=== PATIENT | male | born 1945 | race Caucasian/White ===

== ENCOUNTER 2016-05-31 15:49 | Emergency (ER) | payer MEDICARE ==
[2016-05-31] MEDS ORDERED: [UNRECOGNIZED DRUG - OTHER] IJ (16:38)
[2016-05-31] MEDS ORDERED: FLOMAX 0.40.4 MG/CAP PO (16:38)
[2016-05-31] MEDS ORDERED: RELION VEN0.09 MG/Ac IH (16:38)
[2016-05-31] MEDS ORDERED: ENALAPRIL20 MG PO (16:39)
[2016-05-31] MEDS ORDERED: CREON 60000 U-11 ECC PO (16:39)
[2016-05-31] MEDS ORDERED: LASIX 40MG TABL40 MG PO (16:42)
[2016-05-31 22:40] VITALS: BP 162/70
== END 2016-05-31 22:40 | disposition short-term general hospital (02) ==
LOC: ED 15:49
DX: R53.1 Weakness (principal); R53.81 Other malaise; I50.9 Heart failure, unspecified; R60.9 Edema, unspecified; N18.3 Chronic kidney disease, stage 3 (moderate); S52.591D Other fractures of lower end of right radius, subsequent encounter for closed fracture with routine healing; J44.9 Chronic obstructive pulmonary disease, unspecified; K74.69 Other cirrhosis of liver; E11.22 Type 2 diabetes mellitus with diabetic chronic kidney disease; Z72.0 Tobacco use
CPT/HCPCS: A4344; A4354; J1815; J1940; J7030

== ENCOUNTER 2016-06-10 09:57 | Inpatient (IN) | payer MEDICARE ==
[~2016-06-10 09:57] MED LIST: CREON 60000 U-11 ECC PO; ENALAPRIL20 MG PO; FLOMAX 0.40.4 MG/CAP PO; LASIX 40MG TABL40 MG PO; RELION VEN0.09 MG/Ac IH; [UNRECOGNIZED DRUG - OTHER] IJ
--- NOTE | 2016-06-10 11:39 | NUR ---
Pt admitted to floor via WC. Pt brother at bedside. Placed POM from [facility] in pharmacy. Pt placed on 2L O2 via NC however pt takes it off intermittently "because it gets in the way." Pt sats noted to drop into upper 80's, notified pt of this and he shrugged his shoulders saying "whatever." Pt states several times that he wants to go outside to smoke. Pt is informed that this is a non-smoking facility and a nicotine patch is placed on L shoulder. Abdomen noted to be rounded and firm, pt denies pain with palpation. Scrotum also noted to be red and edematous. Pt refuses to have hat in toilet informing NEWS LIBRARIAN that he can't point penis down in toilet with hat because his scrotum hits. The hat is taken out. Inform pt that he is also on a 2000ml fluid restriction of which he states he is aware. Pt coccyx covered with mepilex, per report from KEYA Gonzalez at [facility], there is a healing ulcer that has granulation, is pink and blanchable. BLE noted to have 3-4+ pitting edema, pt denies pain with palpation but states that walking is difficult as it "feels like I'm walking on clubs." Pt reports having chronic diarrhea and has had several loose stools since arriving. Pt does ambulate with 1 assist using own cane.
[2016-06-10 13:21] VITALS: BP 128/59
--- NOTE | 2016-06-10 17:00 | NUR ---
Pt encouraged and assisted up to chair for dinner. Explain the need to change positions more often to help with healing of pressure ulcer. Pt not very receptive to this.
[2016-06-10 18:48] VITALS: BP 135/61
--- NOTE | 2016-06-10 21:00 | NUR ---
INSECTICIDE MIXER reported to this nurse that pt has a pocket knife, an unknown amount of kaplan, cigarettes, and home medications in room. This nurse asked pt if we could keep these items locked in the med room where they would be safe. Pt states he will give his brother his medications, money, and cigarettes tomorrow, but wishes for them to remain in the room with him. His pocketknife was placed in the medication room.
--- NOTE | 2016-06-11 01:30 | NUR ---
Report received from Keri LAURA. Bed alarm sounds, VENKATA and this nurse down to room. Patient noted to bed sitting self up on EOB, in BR. NETWORK MANAGEMENT SPECIALIST asked patient what he was doing. Patient replied he was getting up to go to the BR. Staff reminded patient that he was to ring for assistence. Patient replied. "why". This nurse advised for safety as he was not able to stand on his own and we didn't want him to fall. NETWORK MANAGEMENT SPECIALIST had told nurse that del brown patient would not stand at all with one assist and that she had to summon help of other nurse to help with patient. Patient sits on EOB to void. Voids small amount in urinal. Assisted back to bed. Positoned for comfort on L side. Bed alarm on. Call light in reach.
--- NOTE | 2016-06-11 01:42 | NUR ---
Report received from Keri LAURA. Patient calls for assist to BR. LAURA in room to assist. Stated patient had a small incontinent diarrhea stool and a small formed stool in toilet. Voided 350 ML of clear yellow urine. Assisted back to bed with bed alarm on. Request and given Imodium, Oxycodone for L rib and wrist pain 11/28 and Duoneb nebulizer tx. Request and given coffee with spelenda. Remains on 2000 ML FR.
--- NOTE | 2016-06-11 04:43 | NUR ---
Has been awake most of the night, watching tv now. States pain in L ribs hasn't changed much "still a 7. Advised patient can have analgesic in 1 hour if needed. Appears relaxed watching TV. Was up few minutes ago to BR and did not requests analgesic to [facility]ER. Denies needs at this time.
[2016-06-11 06:06] VITALS: BP 202/86
--- NOTE | 2016-06-11 06:53 | NUR ---
B/P this AM . Denies H/A, blurred vision or other sx. Recheck manual 190/88. Would like throat lozenge and ocean nasal spray for dry throat and nose. Note left for Dr. Perez.
--- NOTE | 2016-06-11 07:31 | NUR ---
Report to Jasmina LAURA.
--- NOTE | 2016-06-11 08:15 | NUR ---
PT CALM AND PLEASANT AT THIS TIME, SITTING UP EATING BREAKFAST, COMPLEX ASSESSMENT COMPLETED, BLE VERY DRY AND FLAKY, DENIES PAIN, HAS JACKET WITHIN REACH AT ALL TIMES AND INSISTS TO HAVE IT WITH HIM AT ALL TIMES, BG 206 THIS AM, ACCEPTS HIS NOVOLOG SSI BUT REFUSES LEVEMIR, STATES HE STRUGGLES WITH LOW BG LEVELS AND WILL NOT TAKE ANY INSULIN EXCEPT HIS "MEAL" INSULIN, NOTIFIED, ABLE TO WALK WITH SBA TO THE BATHROOM, 3+ PITTING EDEMA TO BLE AND UPON TOILETING SCROTUM APPEARS TO BE EXTREMELY SWOLLEN WELL, PATIENT BACK IN CHAIR EATING, CALL LIGHT WITHIN REACH, DENIES FURTHER NEEDS, NO IMMEDIATE CONCERNS AT THIS TIME
--- NOTE | 2016-06-11 12:10 | NUR ---
PT CALM AND COOPERATIVE WITH STAFF, UP EATING LUNCH, ACCEPTS ADMINISTRATION OF NOVOLOG SSI AND TAKES PO PANCREAZE, STATES HE WILL TAKE BREATHING TREATMENT AFTER LUNCH, DENIES FURTHER NEEDS, CALL LIGHT WITHIN REACH
--- NOTE | 2016-06-11 17:07 | NUR ---
PT REFUSING SUPPER UNTIL HE RECIEVES HIS BREATHING TX, BREATHING TX RUNNING AT THIS TIME, STATES HE MAY TRY TO EAT AFTER BUT HIS ABDOMEN HAS BEEN HURTING AND HE DOESN'T FEEL GOOD, REPORTS PAIN MEDICATION IS BEGINNING TO TAKE EFFECT AND HE WILL LET STAFF KNOW IF THE PAIN GETS WORSE, WILL CONTINUE TO MONITOR
--- NOTE | 2016-06-11 17:20 | NUR ---
PT REFUSING SUPPER STILL, TOOK A FEW SMALL BITES, WANTS TO GET IN BED AND LEAVE MEAL AT BEDSIDE IN CASE HE GETS HUNGRY, PATIENT VERY ADIMENT THAT HIS JACKET FROM HOME STAY IN HIS BED, WHEN THIS NURSE TRIED TO MOVE IT OVER SO HE HAD ROOM TO GET IN THE BED SAFELY HE DEMANDED FOR ME TO PUT IT BACK DOWN AND TO "LEAVE THAT JACKET RIGHT THERE", "DON'T MOVE THAT JACKET", JACKET REMAINS WITH PATIENT IN BED AT THIS TIME, SUPPER ON BEDSIDE TABLE, SOB PRESENT WITH EXERTION, WILL CONTINUE TO MONITOR HEALTH STATUS THROUGHOUT REST OF SHIFT
[2016-06-11 18:24] VITALS: BP 159/74
--- NOTE | 2016-06-11 18:43 | NUR ---
PT IN BED RESTING COMFORTABLY, NO VISITORS THIS ENTIRE SHIFT, HOME MEDS AND POCKET KNIFE STILL AT FACILITY PRENDING BROTHERS VISIT SO HE CAN TAKE THEM HOME, PATIENT REFUSES TO LET STAFF HANDLE HIS HOME MEDICATIONS STILL
--- NOTE | 2016-06-12 04:06 | NUR ---
pt sleeping. No needs at this time. call light in reach. bed alarm on.
[2016-06-12 06:03] VITALS: BP 176/76
--- NOTE | 2016-06-12 08:00 | NUR ---
PT AGREES TO TAKE LEVEMIR TODAY, HE REFUSED YESTERDAY, EDUCATED ON STILL HAVING ELEVATED BG LEVELS AND PATIENT AGREES TO TRY IT BUT STATES "I SURE HOPE I DON'T BOTTOM OUT TODAY", CURRENT BG LEVEL IS 263, ATTITUDE THIS MORNING IS SOMEWHAT WITHDRAWN, IRRITATED EASILY, BUT COOPERATIVE, EATING BREAKFAST, REPORTS THE "SAME PAIN" HE'S BEEN HAVING, PAIN IS MANAGEABLE AT THIS TIME, PT IS ALERT AND ORIENTED, DENIES NAUSEA, WALKS WITH SBA TO THE BATHROOM USING HIS CANE, BACK IN CHAIR EATING UPON COMPLETING ASSESSMENT, CALL LIGHT WITHIN REACH, ABLE TO VOICE NEEDS, NO FURTHER NEEDS OR CONCERNS AT THIS TIME
--- NOTE | 2016-06-12 14:41 | NUR ---
DPOA PAPERWORK ON CHART, CODE STATUS, AND HOME MEDICATIONS/POCKET KNIFE NEEDING TO BE SENT HOME AND DISCUSSED WITH FAMILY STILL NOT COMPLETED DUE TO PATIENT HAVING NO VISITORS OVER THE WEEKEND SO FAR UP TO THIS POINT, PATIENT STATES ALL OF THE ABOVE NEED TO BE DISCUSSED WITH HIS BROTHER STILL AND NO DECISIONS HAVE BEEN MADE, PATIENT STILL A FULL CODE AT THIS TIME
[2016-06-12 19:15] VITALS: BP 165/72
--- NOTE | 2016-06-13 01:40 | NUR ---
pt sitting up in chair. no needs at this time. call light in reach
[2016-06-13 06:08] VITALS: BP 176/90
--- NOTE | 2016-06-13 08:01 | NUR ---
in an attempt toget this patient out of bed and to the chair for breakfast he states he does get up but he wont this am, he will sit on the side of the bed, we also then discussed gettnig off his coccys or he may get a large ulcer in that area, he then asks, "do you want me tostand on my head?", I tried to explain to him youmust relieve the pressure for the are to heal and he should rest on his side, he then states, "Jamir", he currentlyis positioned supine. hob elevated approx 45', this nurse then stated I will not argue with you, you know the facts and it is up to you to follow the recommendatons or not
--- NOTE | 2016-06-13 08:40 | NUR ---
Upon entering room, pt noted to be lying in bed with eyes closed. Coloring is patel but pt sleeping soundly. Pt arouses to touch and instructed to sit on edge of bed for meds and breakfast. Pt is unhappy about this but agrees. Assist to BR using cane, assess coccyx. Noted 0.5cm x 1cm stage II ulcer to coccyx, slight serosanguinous drainage noted, with approx 9cm diameter purple area surrounding wound. Wound is covered with mepilex coccyx dressing. Pt noted to have moderate scrotal swelling. Pt refuses shower this morning for tech stating that he doesn't feel like taking one. Pt also refuses to change out of soiled clothing that he has been wearing since admission. Pt returns to side of bed. Inform pt of morning meds he is getting. Instruct that per orders he will get 6u Novolog and 8u Levemir. Pt states "I just want six of each. I don't want to get too low." Inform pt that BS was 251 this AM prior to eating, Levemir is long acting over 24 hours and he will be eating meals throughout the day and continue to be monitored. Pt agrees to this and insulins given. Breakfast tray set up. Pt requests several more splenda's than the four that he has. Inform ST Delia that pt is now available. She enters pt room to perform eval to which he states that he does not want to receive her services stating "I just want to eat in peace, I don't want anyone watching me eat." Explain to pt that she was not just there to watch him eat, she would be assessing him r/t his disease process to which he still refuses. Pt then requests to receive his breathing tx prior to eating breakfast.
--- NOTE | 2016-06-13 14:49 | NUR ---
Spoke w/ pt as requested per [place] RN who had also spoken to pt about his reported refusal of care. Pt is also reported to have refused Hospice and Palliative care in the past. Pt states to this nurse as explanation of SWB benefits begins, that she is the 5th person to come in and threaten him. Pt is told that no one is threatening him, and that we just want to be sure that he understands what a SWB loc is. SWB loc is explained slowly and pt is given opportunity to ask questions but verbalizes he understands. After explanation pt states, "I came here for you nurses to give me my meds and to feed me, and I want you to let me rest". It is explained to pt that SWB is to help him work towards getting better, that we are here to help him, but for us to do that he must help us. He confirms that he does want to get strong enough to go home and he thinks he can. He knows that he is living w/ a life threatening illness. He is told that SWB is a loc where we can try to help him regain his strength to go home and he could go home w/ HH services that can help him in the home once he is strong enough, but to be eligible for SWB loc he needs to work w/ nursing and therapies to show that he is increasingly getting a little better, and it is important for him to be able to demonstrate that there is some improvement every day, with the exception of days he may understandably get sick or have a set back. When he again states I didn't come here to work, I am here to rest, it is explained to him that is his choice and if he just wants to not be bothered and to just rest, there is another loc that this nurse can help him get set up in where he can do this and others will provide him with this kind of care, such as at a rest home. He just needs to let us know what he wants. He confirms again that he wants to get stronger to go home. It is again explained if he wants to try to go home, we are glad to try and help him reach this goal if he will help us help him. Pt then states that he does not want LTC, but would like to go home. Pt is asked if he would be willing to work in small steps, for example instead of taking a shower, how about just washing his hands and face and sitting on the side of the bed and shaving. He is agreeable to doing this and OT comes to the door to work w/ him at this time. He is advised to visit w/ OT and eat his lunch and then we would see about getting him set up to shave. OT reports afterwards that he is working well w/ her, and she explains that pt knows that he is dying and he just wants to have some control of the situation he is in, which is why he can be resistant to care. OT suggests that nursing approach him with this in mind and present care by offering choices and letting him have some control and decision making power thus give some control back to him. PT makes the same suggestions that nursing allow him to have some control in his decisions of self cares. Pt is offered visiting w/ a aviation project manager or a electrical tryout person of his choice and he emphatically states he does not want one, and that he has no worship. Nursing is notified that therapists are having good results w/ pt working w/ them by using this method of allowing him to assist in making choices. Also 2 copies of "A Time to Live - Living with a Terminal Illness" are left at nursing station for further information/review from a hospice viewpoint of caring for a terminally ill patient, who understands he is dying, but wants to be able to live to the best of his ability at this time.
[2016-06-13 19:02] VITALS: BP 198/85
--- NOTE | 2016-06-13 19:20 | NUR ---
Report given from Amber Castañeda RN
--- NOTE | 2016-06-13 19:30 | NUR ---
Sitting up in bed, a/o x 3. Watching TV. Denies having any pain. Denies having any concerns at this time. Pt given Vanilla pudding and ice chips to water per pt request.
--- NOTE | 2016-06-13 19:30 | NUR ---
See shift accessment
--- NOTE | 2016-06-13 21:00 | NUR ---
Accu-chek done, blood sugar 209
--- NOTE | 2016-06-13 22:30 | NUR ---
Pt ambulated to bathroom with one stand by assist. Gait steady. Continues to have foam dressing on coccyx.
[2016-06-13 22:40] VITALS: BP 158/81
--- NOTE | 2016-06-14 01:37 | NUR ---
Pt given ipratropium/albuterol nebulizer breathing treatment. Per pt request. C/o's of SOB. Sa02 90% on 2L/NC, Resp 24 and labored. Pulse 70
--- NOTE | 2016-06-14 01:55 | NUR ---
0150 c/o's of pain in right wrist and left side of rib cage. Rates pain 7 out of 10. Pt given oxycodone 5mg PO. Sa02 90%, resp 20, Pulse 69 after breathing tx. 0155 Pt ambulated to bathroom with one person minimal assist. Used cane, gait steady. O2 on at 2L/NC
--- NOTE | 2016-06-14 02:38 | NUR ---
0215 Pt requested a diet root beer. Informed pt the facility did not have diet root beer to offer. Offered pt a diet lemon [place] pt agreed. Written on pt's fluid intake sheet. 0235 Pt sitting up in recliner. Request orange juice, stated he would save diet soda for later. Pt reminded orange juice could raise his blood sugar. Pt stated "I know that." "but I need to have little snacks to keep me going." "They have just been giving me more insulin when my blood sugar goes up." Pt given 118mls of oranges with ice chips.
--- NOTE | 2016-06-14 03:03 | NUR ---
Continues to sitting up in recliner, a/o x 3. States he is feeling a little better. Pain decreased from a 7 out 10 to a 5 out of 10.
--- NOTE | 2016-06-14 05:30 | NUR ---
Briana CAD DETAILER report pt's BP at 0525 in right arm was 220/90 with monitor. At 0535 BP was 218/98 with monitor.
[2016-06-14 05:40] VITALS: BP 200/90
[2016-06-14 06:05] VITALS: BP 180/78
--- NOTE | 2016-06-14 06:10 | NUR ---
At 0540 BP checked with manual blood pressure cuff. Blood pressure 200/90. Pt denies headache, dizziness, nausea or lightheadedness. Rates pain right wrist and left side of rib cage 3 out of 10. At 0546 Pt given oxycodone 5mg PO. At 0605 Blood Pressure re-check via manual cuff. BP 180/78. Pt's a/o x 3, answers all questions appropriately. Pupils equal and reactive to light. Equal strength in upper and lower extremities.
[2016-06-14 06:32] VITALS: BP 215/98
--- NOTE | 2016-06-14 07:35 | NUR ---
Report given to Amber Castañeda RN
--- NOTE | 2016-06-14 07:50 | NUR ---
Lara SARGENT notified of pt's blood pressures at 0525 of 220/90 and 0535 of blood pressure 218/98. Nofitied of 0632 Bld pressure of 215 systolic. No new orders.
--- NOTE | 2016-06-14 08:37 | NUR ---
Pt up in chair for breakfast. Denies pain. 02@2L via NC. Ascities remains with abdomen firm and genitalia edematous. BLE skin flaking/dry, 3+ pitting edema. Pt denies pain with palpation.
[2016-06-14 18:49] VITALS: BP 199/89
--- NOTE | 2016-06-14 19:06 | NUR ---
Report received from Amber Castañeda RN
--- NOTE | 2016-06-14 20:15 | NUR ---
Resting in bed eyes closed. Opens eyes when spoken too. Ambulated to bathroom with one stand by assist and used cane.
--- NOTE | 2016-06-14 20:18 | NUR ---
See shift accessment
--- NOTE | 2016-06-14 20:45 | NUR ---
2040 C/o's of pain right wrist and left sided rib cage. Rated 5 out 10. Given oxycodone 5mg PO
--- NOTE | 2016-06-15 | NUR ---
Pt resting in bed, with head of bed elevated. Oxygen on at 2L/NC. Q hourly checks done.
--- NOTE | 2016-06-15 00:48 | NUR ---
0035 Pt ambulated to bathroom, with one stand by assist, used cane. Given breathing treatment per pt request. Lung sounds diminished in upper and lower lobes. 0057 C/o's of pain in right wrist and left side of rib cage. Rates 6 out of 10. Given Oxycodone 5mg PO.
--- NOTE | 2016-06-15 00:57 | NUR ---
Sa02 89% on 2L/NC. Oxygen increased to 3L/NC per pt request
--- NOTE | 2016-06-15 01:30 | NUR ---
Report received from Wali LAURA. Patient rests in bed with eyes closed. Bed alarm on. Oxygen in place per N/C. No signs of pain or distress.
--- NOTE | 2016-06-15 02:42 | NUR ---
Up to BR with 1 assist and cane, voids 300 ML of clear yellow urine. Assisted back to chair per request. SAO2 was checked at 0200 and was 92% on 3L of oxygen. O2 decreased to 2L at that time.
--- NOTE | 2016-06-15 05:18 | NUR ---
Medicated with Oxycodone 5 Mg for pain to right wrist and bottom 6/10. Blood pressure 219/98. Denies H/A, blurred or double vision. "it just does that sometimes". Per report of previous nurse patient has been having episodes of hypertension and provider aware. Will report to oncoming shift.
[2016-06-15 05:52] VITALS: BP 216/95
--- NOTE | 2016-06-15 06:27 | NUR ---
Resting with eyes closed, no signs of pain or distress. Bed alarm on. Call light in reach.
--- NOTE | 2016-06-15 07:08 | NUR ---
Report to August RN
[2016-06-15 18:46] VITALS: BP 165/77
--- NOTE | 2016-06-15 21:04 | NUR ---
Report received from Shonna RN. Patient awaken for assessement and medications. Assisted to BR. Voided and had BM. Assisted to bed. Assessment completed. Oxygen in place at 2 L/NC. Oxycodone given per request with scheduled HS medication. Bed alarm on. Call light in reach.
--- NOTE | 2016-06-16 04:27 | NUR ---
Rests with eyes closed. Oxygen in place at 2L/NC. Bed alarm shank boner light in reach.
--- NOTE | 2016-06-16 05:20 | NUR ---
Up to BR with assist. Voids 400 ML of clear yellow urine. Requests Nebulizer tx and pain pill for buttock pain 10/29.
[2016-06-16 06:04] VITALS: BP 211/94
--- NOTE | 2016-06-16 07:00 | NUR ---
Report to Padmaja LAURA
--- NOTE | 2016-06-16 08:30 | NUR ---
Pt sitting in up in chair. Has completed eating breakfast. Re educated on fluid restriction guidelines and importance as pt is asking for more ice water. BLE with 3+ pitting edema. SKin connie and flakey. Encouraged to elevate. Coban intact to right wrist. Denies pain at this time. Call light in reach.
--- NOTE | 2016-06-16 13:37 | NUR ---
Pt allows this RN to use elephant ear wash equiptment and clean out bilat ears. Several large pieces of wax removed from right ear. Pt tolerates well.
[2016-06-16 18:15] VITALS: BP 174/77
--- NOTE | 2016-06-16 19:00 | NUR ---
Report received from Padmaja Gomes RN
--- NOTE | 2016-06-16 19:48 | NUR ---
193 Resting in bed, with head of bed elevated, eyes closed. Opens eyes when spoken too. Oxygen on at 2L/NC. See shift accessment. Pt c/o's of pain right wrist, left sided rib cage pain. Stated "my butt is sore." Rates pain 6 out of 10. 1940 Ambulated to bathroom with one stand by assist. Aquacel Foam dressing changed on coccyx. Drainage noted on old dressing approx 2cm size. Color brown. Approx 2cm x 2cm area noted center of sacrum area. Skin pink, no active drainage noted. New Aquacel foam dressing applied to coccyx.
--- NOTE | 2016-06-16 21:35 | NUR ---
2109 Pt given oxycodone 5mg PO for pain. Given scheduled breathing tx. Lung sounds diminished in upper and lower lobes. Has occasional dry none productive cough. 2131 given insulin 6 units SQ for blood sugar of 290.
--- NOTE | 2016-06-16 23:00 | NUR ---
Resting in bed, head of bed elevated. Eyes closed. Oxygen on at 2L/NC.
--- NOTE | 2016-06-16 23:50 | NUR ---
Pt Awake, requesting to have wrap on right wrist removed. Pt c/o's of it bothering him. Marilyn Briscoe APRN notified.
--- NOTE | 2016-06-17 | NUR ---
Marilyn Briscoe APRN into see pt, Marilyn removed wrap from right wrist.
--- NOTE | 2016-06-17 01:50 | NUR ---
At 0140 Pt ambulated to bathroom with one stand by assist, used cane. Oxygen on at 2L/NC. C/o's of SOB after ambulating back to bed. Given PRN breathing treatment. Sa02 90%-91% on 2L/NC. Pt has dry none productive cough. Given oxycodone 5mg PO. Rates pain 6 out of 10
--- NOTE | 2016-06-17 03:00 | NUR ---
Resting in recliner, eyes closed on and off. Oxygen on at 2L/NC. When asked if pain was better, pt stated "yes." Rated pain approx 4 out 10.
--- NOTE | 2016-06-17 05:10 | NUR ---
Ambulated to bathroom. Then requested all lights off except bathroom light. Stated he was going to sleep now. Door closed per pt request. Continues to have oxygen on at 2L/NC and none productive cough.
[2016-06-17 06:18] VITALS: BP 207/96
--- NOTE | 2016-06-17 07:45 | NUR ---
REPORT RECEIVED FROM KEYA MENDOZA
--- NOTE | 2016-06-17 08:00 | NUR ---
PATIENT UP TO RECLINER FOR BREAKFAST. SHIFT ASSESSMENT COMPLETE. REPORTS HAVING AN OKAY NIGHT OVERALL. STATES "IT WAS SLEEPLESS THEY ALL ARE" REPORTS PAIN IS 6/10 IN CHEST WHERE FRACTURED RIB IS AT AND ON BOTTOM. REQUESTED PAIN PILL WITH REST OF SCHEDULED MEDICATIONS THIS MORNING. FINE CRACKLES AUSCULTATED TO BILAT LOWER LOBES. UPPER LOBES DIMINISHED. ON OXYGEN VIA NASAL CANNULA AT 2L. PATIENT'S CALL LIGHT WITHIN REACH. CHAIR ALARM ON.
[2016-06-17 10:05] VITALS: BP 165/67
--- NOTE | 2016-06-17 16:37 | NUR ---
Pt anticipates returning to his home environment and is in agreement w/ having HH services. He will be reassessed on regarding discharge plan.
[2016-06-17 18:30] VITALS: BP 161/73
--- NOTE | 2016-06-17 19:05 | NUR ---
REPORT GIVEN TO KEYA MENDOZA
--- NOTE | 2016-06-17 19:06 | NUR ---
Report received from Yesenia Martinez RN
--- NOTE | 2016-06-17 19:50 | NUR ---
Pt sitting in bed with head of bed elevated. Pt eyes closed on and off. Opens eyes when spoken too. Oxygen on at 2 L/NC. C/o's of pain left side of rib cage and coccyx. States he does not have much discomfort in right wrist. See pt shift accessment.
--- NOTE | 2016-06-17 19:52 | NUR ---
Pt has 2-3 plus edema in bilateral ankles and feet. Pulses are weak and difficulty to find due to the edema.
--- NOTE | 2016-06-17 20:50 | NUR ---
Pt given oxycodone 5mg PO, for pain located left side of rib cage and coccyx. Rated pain 6 out of 10. Pain goal is zero. Pt tolerated breathing treatment without difficulty. Sa02 92% on 2L/NC. Pulse 67, respirations 24 slightly labored. Pt becomes SOB of breath with walking.
--- NOTE | 2016-06-17 22:10 | NUR ---
Resting in bed with head of bed elevated. Oxygen on at 2L/NC. Eyes closed even respirations.
--- NOTE | 2016-06-18 00:30 | NUR ---
Resting in recliner, eyes closed, respirations even. No facial grimacing noted. Oxygen at 2L/NC.
--- NOTE | 2016-06-18 01:34 | NUR ---
Pt awake and a/o x 3. Pt ambulated to bathroom with one stand by assist and used cane. C/o of SOB after ambulating. Sa02 93% on 2L/NC, pulse 63, respirations 24. Pt c/o's of pain in left side of rib cage and coccyx. Pt given oxycodone 5mg PO.
--- NOTE | 2016-06-18 01:44 | NUR ---
Pt given breathing treatment, c/o of SOB. Sa02 93%, pulse 63, respirations 24. Lung sounds diminished in upper and lower lobes bilaterally. Expiratory wheezes noted in left upper and lower lobes.
--- NOTE | 2016-06-18 02:30 | NUR ---
Resting in recliner, eyes closed, respirations even. No facial grimacing noted.
--- NOTE | 2016-06-18 03:45 | NUR ---
Awake and a/o x 3. Ambulated to bathroom with one person stand by assist. Pt used cane, gait steady. Oxygen on at 2L/NC. No c/o's of SOB or pain.
[2016-06-18 06:05] VITALS: BP 192/89
--- NOTE | 2016-06-18 06:37 | NUR ---
At 0547 pt given breathing treatment per pt request. Sa02 89-90% 2L/NC, pulse 67, respirations 24 prior to breathing tx. 0600 Respirations 24, pulse 63, Sa02 93%. after breathing tx. Lung sounds diminished in upper and lower lobes. 0614 blood sugar 309. 0627 scheduled levermir of 12units given SQ right lower abd. 0635 Resting in bed, room lights off per pt request.
--- NOTE | 2016-06-18 08:10 | NUR ---
Patient calm and cooperative, pleasant with staff this AM, denies any new pains, pain is under control at this time, pt is up in chair eating breakfast, takes PO pills with no difficulties, BG levels still elevated, Levemir and Novolog given this AM, will continue to monitor BG levels, no acute changes this AM, walking to and from bathroom independently with SBA and cane, Mepilex to pressure sore on coccyx changed at this time, sore still open but appears to be healing, no further concerns noted at this time
--- NOTE | 2016-06-18 15:52 | NUR ---
Pt relaxing in room throughout most of shift, refusing to take a shower today, family by to see patient for short time this afternoon, patients pain is under control, gets agitated about his fluid restriction and keeps asking for more salt on food, educated on importance of fluid restriction and monitoring salt intake, easily redirected at this time
--- NOTE | 2016-06-18 16:02 | NUR ---
Pt calls nurse into room at this time and says he thinks his BG is low, he is "seeing spots" and that is what happens when his BG drops, this nurse obtained a BG reading and it read 47, attempted a second time and obtained a reading of 51, monica crackers and peanut butter provided for patient at this time, will recheck BG level in 15 minutes, denies further symptoms other than seeing spots, he is alert and oriented x4, awake, and able to converse with staff
--- NOTE | 2016-06-18 16:22 | NUR ---
New BG obtained, only up to 50 at this time, 8 ounces of OJ, monica crackers, and peanut butter given to patient, patient drinking OJ and eating the crackers and PB at this time, alert and oriented x4, states "spots" in vision is getting better, will recheck BG in 15 minutes, pt sitting on side of bed fully engaging in conversation and wide awake, calm and cooperative with staff
[2016-06-18 18:02] VITALS: BP 155/75
[2016-06-18 18:05] VITALS: BP 180/83
--- NOTE | 2016-06-18 21:42 | NUR ---
Assessment complete. Pt denies any needs at this time. Pt refuses 2u HS Novolog for FSBS 178. Pt abdomen firm and rounded, pt denies pain with palpation. BLE below knees with 3+ pitting edema, red and warm. Pt denies that they are painful. R wrist no longer wrapped, pt states that it is no longer painful either.
--- NOTE | 2016-06-18 23:00 | NUR ---
Report received from Amber LAURA and care assume at this time. Rests supine in bed watching TV. O2 in place at 2L/NC. Denies wants or needs. Bed alarm on. Call light in reach.
--- NOTE | 2016-06-19 06:22 | NUR ---
Requested and given PRN nebulizer tx and PRN analgesic for pain 6/10 to buttocks. Accu-check 443 before Levemir. "don't give me too much it falls quickly" explained to patient this was his long acting insulin and that accu-check would be checked again and SS would be administered before breakfast.
[2016-06-19 06:30] VITALS: BP 200/97
--- NOTE | 2016-06-19 06:58 | NUR ---
notified of 443 accu-check this AM.
--- NOTE | 2016-06-19 07:36 | NUR ---
Report to Elvia LAURA
--- NOTE | 2016-06-19 08:45 | NUR ---
Patient alert and oriented. Sitting up in the chair. Rates pain 5-6/10 to left ribs/coccyx. States that is a tolerable pain level for him. Dressing to coccyx is clean, dry, and intact. Accucheck at 0730 was 355. 10 units of novolog to be given per sliding scale orders. Patient is hesitant, states that he is concerned about taking the 10 units and then dropping too low. States that he does not want his blood glucose to drop below 120 and that he "would rather play on the safe side." Patient ate 100% of breakfast. Education provided. Patient verbalized understanding. Patient is pleasant and cooperative. Agreeable to [address] Perez notified. 9 units of novolog administered. Patient on oxygen at 2 liters via nasal cannula. Dysnea noted with exertion. Patient denies needs at this time. Fall precautions in place.
[2016-06-19 18:12] VITALS: BP 173/84
--- NOTE | 2016-06-19 20:00 | NUR ---
Report received from Elvia LAURA. Patient resting supine in bed with eyes closed. No signs of pain or distress. Dr. Perez made aware by this nurse and day nurse of drop in blood sugars last 2 days after Levemir increase from 8 units at 0800 to 12 units at 0700. Drops around supper time, depite eating large meal at lunch. Dosage decreased an split to 5 Units BID at 0730 and 1630. Will educate patient when awakens.
--- NOTE | 2016-06-19 20:52 | NUR ---
Awake, EGG TESTER in room to take blood sugar. Accu check 91. Requests grapes. Does not like blood sugar below 120. This nurse suggests to EGG TESTER to give grapes but offer some protein also. Patient refuses at this time.
--- NOTE | 2016-06-19 21:45 | NUR ---
Sitting up in recliner. Assessment completed. Oxygen in place at 2L/NC. Pain level 6/10 to coccyx and states "just all over". Oxycodone 5 MG given PO with HS medications for pain. Talked with patient extensively about Levemir dosage increase and the effects of blood sugar drop past couple of days and that Dr. Perez decreased and split dosage and feels that is cause of blood sugar drop not SS. Patient verbalizes doesn't like the Levemier nor likes the SS. Verbalizes wanting to refuse. I spoke with him that he has the right but that too high of blood sugars will cause problems also like delay wound healing to his coccyx ulcer, cause vision problems, etc. Patient requests that blood sugar be rechecked at this time. Accu-check was 109. I again suggested a protein and offered a sandwhich in which it stated he was "too full". I suggested he eat just the meat and cheese and not the bread in [facility] he declined. I offered Peanut butter and crackers, he declined. I had mentioned milk a couple of times in [facility] he finally had decided upon a glass of milk and pudding. He had asked for hot chocolate but i had told him not much protein there. I have continued to try and educate him that juice and simple sugars in good for raising the blood sugar quickly but he needs the protein to substain it. He states he has a heat pad here and asked if he could use it. I advised that I could not allow it due to a fire hazard but would get him one of ours. He stated that it helps when he feels"full and it helps him digest his food".
--- NOTE | 2016-06-20 01:39 | NUR ---
Awake, K-pad off, requests and given Ice and Ice cream.
--- NOTE | 2016-06-20 02:35 | NUR ---
Requests nebulizer tx and pain pill for pain to coccyx 10/29. Sits of EOB for nebulizer tx. Has been awake most of night with short episodes of dozing. Denies further wants or needs.
[2016-06-20 06:15] VITALS: BP 210/96
--- NOTE | 2016-06-20 06:16 | NUR ---
Rested on and off all shift. Awake more than asleep. Utilized K-pad PRN to abdomen. Scheduled AM Protonix taken. Requested another neb tx. Saline nebulizer tx given at this time.
--- NOTE | 2016-06-20 07:19 | NUR ---
Report to Yesenia LAURA
--- NOTE | 2016-06-20 07:20 | NUR ---
REPORT RECEIVED FROM TREVON PHILIP LPN
[2016-06-20 08:20] VITALS: BP 212/92
--- NOTE | 2016-06-20 08:20 | NUR ---
PATIENT UP TO RECLINER FOR BREAKFAST. SHIFT ASSESSMENT COMPLETE. PATIENT ALERT AND ORIENTED X4. REPORTS HAVING "MY USUAL PAIN" RATED 6/10. REPORTS PAIN IS "IN CHEST, BOTTOM, AND WRIST" REQUESTED PRN PAIN MEDICATIONS WITH REST OF MEDICATIONS. PENIS AND SCROTUM EDEMATOUS, STATES IT'S BETTER BUT NOT GOOD I WOULD LIKE FOR IT TO BE" MEPILEX FOAM DRESSING IN PLACE TO COCCYX. PATIENT'S ACCU CHECK 293. PATIENT REFUSED SCHEDULED LEVEMIR THIS MORNING. PER SLIDING SCALE PATIENT TO TAKE 6 UNITS OF NOVOLOG. PATIENT REFUSING 6 UNITS. STATES THAT HE WILL ONLY TAKE 4 UNITS. PATIENT EDUCATED ON TYPES OF INSULIN AND NEEDS FOR BOTH. EDUCATED PATIENT ON CHANGES TO ORDER FOR LEVEMIR DOSING AND REASONING. IMPORTANCE OF TAKING ORDERED INSULIN STRESSED. PATIENT REFUSES. PATIENT GIVEN 4 UNITS OF NOVOLOG. ON OXYGEN VIA NASAL CANNULA AT 2L. CALL LIGHT WITHIN REACH. CHAIR ALARM ON.
[2016-06-20 09:15] VITALS: BP 178/62
--- NOTE | 2016-06-20 09:15 | NUR ---
PATIENT'S BLOOD PRESSURE 178/60 AT THIS TIME.
--- NOTE | 2016-06-20 12:30 | NUR ---
PATIENT'S ACCU CHECK 321. PER ORDERED SLIDING SCALE PATIENT TO HAVE 8 UNITS OF NOVOLOG. PATIENT REFUSED 8 UNITS STATES THAT HE WILL TAKE 6. 6 UNITS ADMINISTERED. PATIENT EDUCATED ON IMPORTANCE OF TAKING ORDERED DOSING AND BLOOD SUGARS. PATIENT STATES "THEY TOLD ME I DIDN'T HAVE TO TAKE THE AMOUNT THAT IS ORDERED"
--- NOTE | 2016-06-20 13:50 | NUR ---
NOTIFIED THAT PATIENT HAS BEEN REFUSING TO TAKE ORDERED DOSING OF NOVOLOG, PATIENT'S WEIGHT, AND BLOOD PRESSURES.
[2016-06-20 18:45] VITALS: BP 218/98
--- NOTE | 2016-06-20 18:55 | NUR ---
PATIENT'S BLOOD PRESSURE 218/98. RECHECK WAS 216/100. NOTIFIED. ORDER RECEIVED TO GIVE PATIENT PAIN PILL NOW AND FOR ONE TIME ADDITIONAL LASIX 80 MG PO. PATIENT REQUESTED TO TRY TAKING PAIN PILL FOR NOW TO SEE IF THAT HELPED TO LOWER BLOOD PRESSURE BEFORE TAKING LASIX. PAIN PILL ADMINISTERED. NOTIFIED AND OKAY WITH PATIENT'S REQUEST. WILL RECHECK BLOOD PRESSURE 30 MIN AFTER PAIN PILL GIVEN.
--- NOTE | 2016-06-20 19:15 | NUR ---
REPORT GIVEN TO KEYA MENDOZA
--- NOTE | 2016-06-20 19:16 | NUR ---
Report received from Yesenia Martinez RN
--- NOTE | 2016-06-20 19:18 | NUR ---
Resting in bed, eyes closed. Pt opens eyes when spoken too. No c/o's of pain denied having any needs. See shift accessment.
--- NOTE | 2016-06-20 19:19 | NUR ---
Unable to palpate Dorsal pulse and tibial pulse due to pt's ankle and foot having 3 plus edema. Skin cool to touch, capillary refill less than 3 seconds.
--- NOTE | 2016-06-20 21:30 | NUR ---
2100 Pt tolerated breathing treatment without difficulty. Lungs diminished upper lobes bilaterally. Rt lower lobe diminished. Lt lower lobe diminished and coarse on expirations. Pt dry, none productive cough.
--- NOTE | 2016-06-20 21:35 | NUR ---
Pt's blood sugar at 2112 270. Slide scale insulin order is 6 units. Pt refused 6 units. Stated "I only take 4 units." "I don't want to bottom out again." 2132 Mariama Pinzon MD notified. Doctor gave order for Novalog 4 units x one. 2134 Novalog 4 units given SQ in right lower abd.
--- NOTE | 2016-06-20 22:34 | NUR ---
Resting bed, eyes closed, respirations even. No facial grimacing noted.
--- NOTE | 2016-06-20 22:36 | NUR ---
REPORT RECEIVED FROM KEYA MENDOZA.
--- NOTE | 2016-06-20 22:40 | NUR ---
Report given to Rakel LAURA
[2016-06-20 23:23] VITALS: BP 216/95
--- NOTE | 2016-06-21 02:42 | NUR ---
PATIENT DOES NOT APPEAR TO BE IN ANY OBVIOUS DISTRESS. PATIENT HAS BEEN UP TO THE BATHROOM QUITE A FEW TIMES THROUGHOUT THE NIGHT. PATIENT HAS NO COMPLAINTS OR REQUESTS AT THIS TIME. PATIENT CHANGES POSITION IN BED INDEPENDENTLY THROUGHOUT THE NIGHT. BED RAILS UP X2. HOB ELEVATED TO A 65 DEGREE ANGLE. BED ALARM ARMED AT ALL TIMES. HOURLY ROUNDS AND CLOSE MONITORING CONTINUE.
[2016-06-21 06:08] VITALS: BP 218/100
--- NOTE | 2016-06-21 06:58 | NUR ---
REPORT GIVEN TO KENNETH Christina RN.
--- NOTE | 2016-06-21 07:45 | NUR ---
PATIENT LYING IN BED WITH HEAD OF BED ELEVATED. THIS NURSE IN PATIENT'S ROOM TO DO SHIFT ASSESSMENT. PATIENT ASKED HOW NIGHT WAS, SHRUGS SHOULDERS, "EVERYBODY KEPT WAKING ME UP ALL NIGHT LONG" THIS NURSE SPOKE WITH PATIENT ABOUT HIM NOT SLEEPING. PATIENT TOLD THAT HE DOESN'T SEEM TO EVER GET ANY SLEEP AND ASKED WHAT COULD BE DONE TO HELP HIM GET SLEEP. ASKED PATIET IF HE WOULD BE WILLING TO TRY MEDICATION TO HELP HIM SLEEP, EDUCATED PATIENT ON SOME OF THE MEDICATIONS THAT ARE OPTIONS TO HELP WITH SLEEP. ASKED PATIENT IF THAT IS SOMETHING HE WOULD BE WILLING TO TRY. STATES "I'LL THINK ABOUT IT" THIS NURSE SAID TO PATIENT THAT HE SEEMS VERY UNHAPPY AND FRUSTRATED WITH NURSING STAFF AND ASKED IF THERE IS ANYTHING THAT COULD BE DONE AND THAT STAFF MEMERS ARE HERE TO HELP PATIENT AND DO NOT WANT HIM TO BE MISERABLE. PATIENT RESPONDS "WELL LIKE THIS MORNING I WAS ABOUT TO FALL ASLEEP TO GET SOME REST AND THEN YOU CAME IN AND YOUR BOTHERING ME" PATIENT ASKED IF HE FELT THOUGH HIS PAIN WAS WELL CONTROLLED. PATIENT STATES "WELL I HAVE BROKEN RIBS, AND A BROKEN WRIST I HAVE REASON TO BE HURTING" PATIENT ASSURED THAT THIS NURSE WAS NOT TRYING TO ACCUSE HIM OR UPSET HIM OF NOT NEEDING PAIN MEDICATIONS AND THAT MAKING SURE PATIENT WAS GETTING ADEQUATE PAIN RELIEF. SPOKE WITH PATIENT ABOUT FENTANYL PATCHES AND ASKED PATIENT IF HE FELT THOUGH THAT WOULD BE APPROPRIATE. PATIENT STATES "WELL I DON'T KNOW I'LL THINK ABOUT IT" PATIENT'S CALL LIGHT WIHTIN REACH. BED ALARM ON.
--- NOTE | 2016-06-21 12:50 | NUR ---
Izabella JIMÉNEZ PA IN TO SEE PATIENT. THIS NURSE IN ROOM. PATIENT REPORTED TO Izabella JIMÉNEZ THAT HE DIDN'T FEEL THOUGH HE WAS MAKING MUCH IMPROVEMENT HERE AND THAT HE HAS NOT NOTICED MUCH DIFFERENCE WITH THERAPY. Izabella JIMÉNEZ SPOKE WITH PATIENT ABOUT HIM REFUSING TO TAKE HIS ORDERED INSULIN THE PAST COUPLE OF DAYS. PATIENT REPORTED TO Izabella JIMÉNEZ THAT HE HAD 3 TIMES WHERE BLOOD SUGAR WAS LOW OVER THE WEEKEND AND HE'S NOT TAKING THE ORDERED DOSES BECAUSE HE THINKS BLOOD SUGARS ARE BETTER HIGH THAN LOW. Izabella JIMÉNEZ EDUCATED PATIENT ON PLAN OF CARE AND THAT HIS BLOOD SUGARS BEING HIGH AND BLOOD PRESSURES BEING ELEVATED ARE SOMETHING THAT NEED TO BE ADRESSED WHILE IN THE HOSPITAL AND THAT IS PART OF BEING A SWING BED PATIENT IN THE HOSPITAL. PATIENT TOLD THAT IF HE WAS NOT GOING TO COMPLY AND DID NOT AGREE WITH THE CARE HE WAS RECEIVING AND IF HE FELT THOUGH HE WAS NOT BENEFITING FROM BEING HERE THAT IT WAS TIME TO DISCUSS OTHER FACILITY OPTIONS OR HOME WITH HOME HEALTH AND PLAN FOR HIM TO BE DISCHARGED. PATIENT STATED"IF I COULD JUST BE HERE AND GET UP ON MY OWN AND MOVE AROUND WHEN I WANT AND NOT HAVE ALL THESE ALARMS AND BELLS AND NOT HAVE TO HAVE SOMEBODY WITH ME IN HERE I'D BE MORE WILLING TO STAY.
--- NOTE | 2016-06-21 14:00 | NUR ---
PATIENT'S PLAN OF CARE DISCUSSED WITH ARIE ABDUL NURSING, THERAPY, AND CLINICAL PASSENGER CAR CONDUCTOR. PLAN IS TO DISCUSS WITH PATIENT OPTIONS FOR ONCE HE LEAVES THIS HOSPITAL AND IF HE WOULD PREFER HOME WITH HOME HEALTH OF GOING TO A LONG TERM AND BEGIN SETTING UP ARRANGEMENTS FOR PATIENT TO BE DISCHARGED.
[2016-06-21 18:26] VITALS: BP 221/97
[2016-06-21 18:32] VITALS: BP 184/78
--- NOTE | 2016-06-21 19:20 | NUR ---
REPORT GIVEN TO TREVON PHILIP LPN
--- NOTE | 2016-06-21 20:40 | NUR ---
Report received from Yesenia LAURA. Patient rests supine in bed. A/O x4. Oxygen in place at 2 L/NC. Rates pain to Coccyx 6/10. Mepilex in place. Oxycodone 5 MG PO given with HS medications. Accu-check 233. Refuses SS Novolog Insulin. Educated that he will have a snack with the insulin and that due to the fact that he usually eats several times in the night, and that the dosage is low he should take the insulin he still refuses. Assessement completed. Nebulizer tx started. Bed alarm on. Call light in reach. Denies further wants or needs at this time.
--- NOTE | 2016-06-22 04:07 | NUR ---
Resting better tonight and calling less. Has not asked for multiple snacks as he has past nights. Calls for assist to BR PRN. Bed alarm on. Call light in reach.
--- NOTE | 2016-06-22 05:10 | NUR ---
Up to BR with SBA. Had med soft formed escalante BM. Back to bed. Requested Neb tx and pain pill for coccyx pain 10/29. Requests and given cup of ice water. Remains on 2000 ML FR. Bed alarm on. Call light in reach.
[2016-06-22 05:53] VITALS: BP 210/97
--- NOTE | 2016-06-22 07:32 | NUR ---
Report to Amber LAURA
--- NOTE | 2016-06-22 08:35 | NUR ---
Pt sitting up in chair. Requests breathing tx prior to eating breakfast. Inform pt of FSBS and insulin orders. Pt states that he will take 6u Novolog and only 2u Levemir. Pt also states that he does not know how FSBS got so high. Inform pt this is likely due to refusal of levemir and novolog at HS. Instruct pt that the order is for 5u levemir, of which he refuses. New nicotine patch placed to L shoulder. Coccyx dressing remains in place to coccyx. BLE red/warm with +3 pitting edema.
--- NOTE | 2016-06-22 15:45 | NUR ---
Staff from [facility] at pt bedside for SWB assessment.
--- NOTE | 2016-06-22 16:07 | NUR ---
[facility]; [facility]; and SNF. [facility] SW, Clarissa Claire calls back and schedules intake today w/ nurse screening tomorrow, stating that the soonest they would be able to admit pt would be on Monday06-24-16. Clarissa explains [facility]'s reasons for not being able to accept pt until Monday to Attending Provider, ARIE Zamora, who is in agreement w/ pt continuing to work w/ therapies until he transfers to [facility] for extended SN care for PT/OT. Pt anticipates that he will return home w/ HH services after SN at . However, there does remain the possibility that he will need continued LTC and at LTCF and he would be able to transition into LTC if needed for either end of life care or hospice care. Pt also may be eligible for [facility] program in the future. He will have to be eligible for [facility] to enter this program and if he signs up in the next few weeks, he would possibly be able to be accepted into this program by August, he would have to use the PACE PCP (unless Dr Vázquez is a PACE Provider), this information is shared w/ Dr Vázquez's office, and SW. Pt has requested that he be set up w/ a new PCP, as he does not want Dr Geovanni Cheek taking care of him any more. He states he would prefer a [facility] is called and Dr Vázquez is accepting new patients. Pt has an appointment w/ Dr Vázquez on 06-24-16 @ 12:15 for f/u hospital care and signing of [facility] SNF orders, and he has an appointment on 06-27-16 @ 2:30 for new patient appointment to establish care w/ Dr Vázquez. Pt and his brother are notified of this and will pick pt up for Dr appointment prior to his admission to SNF, they will also take him to his appointment on 06-27-16. Pt is in agreement w/ this plan to continue his SN care at SNF. Palliative Care Consult is requested from [facility] Medical Records to send w/ Terminal Illness Certification Form to [facility] prior to his admission to SNF. [facility] fax[facility].
[2016-06-22] MEDS ORDERED: LASIX40 M1 PO (16:23)
[2016-06-22] MEDS ORDERED: RT ALBUTEROL CC18 GM IH (16:24)
[2016-06-22 18:36] VITALS: BP 199/91
--- NOTE | 2016-06-22 19:54 | NUR ---
Rings call light requests pain pill for pain to coccyx 10/29. Assisted to BR per request. Brother in to visit.
--- NOTE | 2016-06-22 20:27 | NUR ---
Assessment completed. Oxygen in place at 2L/NC. BLE continue to be swollen at 3+. Brother visiting at current time.
--- NOTE | 2016-06-22 21:00 | NUR ---
This nurse to room with HS medications and Insulins. Explained to patient that is blood sugar is 325 and that the sliding scale calls for 6 Units of Novolog insulin which is the short acting insulin. I also explained to him that the PA had dropped his Levemier, which is his long acting insulin down to 6 Units and has scheduled it at night which is now also. Patient stated that he has not been taking the long acting insulin. I then pointed out to him that yes I know and that his blood sugars have been running hi as a result of this. He pondered that and said "they dropped down when I started taking that". I then, explained to him, as I did this past weekend that they did not bottom out when he was taking the 8 Units. They were still running high. They started dropping low when the decision was made to raise the Levemier from 8 Units to 12 Units. I pointed out that now it would be 6 units which is lower than the original 8 units that he was taking when he first came. He again thought about it for a moment and made the decision to only take the 6 units of SS Novolog. We then moved on to the snack and he opted for an orange that was on his bedside table and water, I tried to talk about needing some protein in which he declined all suggestions and offers. Scheduled HS medications given at this time. He requested the coccyx dressing be changed at this time and it was. We discussed off loading of the coccyx/buttocks to reduce the pressure and pain to the area to help facilitate the healing process. This too has been discussed multiple times with this patient by myself and other nurses to no avail. Patient continues to be non-compliant and resistent to suggestions in this area as well.
--- NOTE | 2016-06-23 00:08 | NUR ---
Rests with eyes closed. No signs of pain or distrss. Bed alarm on. Call light in reach.
--- NOTE | 2016-06-23 01:35 | NUR ---
Rings call light. Requests blood sugar taken. Accu-check is 191 Mg/dl. Assisted back to bed per request. Cup of ice given. Bed alarm on. Call light in reach.
--- NOTE | 2016-06-23 04:09 | NUR ---
Rings call light requests nebulizer tx and pain pill for coccyx pain 10/29.
[2016-06-23 06:08] VITALS: BP 174/74
--- NOTE | 2016-06-23 07:24 | NUR ---
Report to Meena LAURA.
--- NOTE | 2016-06-23 08:00 | NUR ---
Pt sitting up in chair. Requests breathing tx prior to breakfast. Pt on 2L O2 via NC. Denies pain at this time. Ulcer to sacrum closed, new pink skin noted to previously open area. Tissue immediately surrounding wound is purple and blanchable. Pt is instructed to continue to shift weight off of sacrum.
--- NOTE | 2016-06-23 08:30 | NUR ---
Dr. Rain at pt bedside to discuss POC and current insulin orders.
[2016-06-23 18:00] VITALS: BP 165/79
--- NOTE | 2016-06-23 20:50 | NUR ---
Shift assessment documented and completed at this time. Pt is SOA and states he has pain in his chest. Pt requests scheduled breathing txs to alleviate. General skin color is dusky. BLE edema 2+. Lungs diminshed throughout. Pt is withdrawn and not engaging in coversations with staff this evening. 2L NC utilized. HS medications given per request by Mark Hull RN. Pt agrees to Novolog and only 2 units Levemir. Bed locked, low, call light within reach, alarm armed. No further needs at this time.
[2016-06-24 05:52] VITALS: BP 188/94
[2016-06-24] MEDS ORDERED: IPRATROPIUM BROM3 M1 IH ×2 (07:33)
[2016-06-24] MEDS ORDERED: KROGER NIC21 MG/24 H TD (07:34)
[2016-06-24] MEDS ORDERED: CARVEDILOL6.25 MG PO (07:34)
[2016-06-24] MEDS ORDERED: AMLODIPINE BESYL5 MG PO (07:35)
[2016-06-24] MEDS ORDERED: OXYCODONE PO (07:35)
[2016-06-24] MEDS ORDERED: [UNRECOGNIZED DRUG - OTHER] IH (07:36)
[2016-06-24] MEDS ORDERED: LASIX 80MG TABL80 MG PO (07:37)
[2016-06-24] MEDS ORDERED: PANTOPRAZOLE SO40 MG PO (07:38)
[2016-06-24] MEDS ORDERED: FLUTICASON0.05 MG/AC NS (07:38)
[2016-06-24] MEDS ORDERED: DEEP SEA 45 ML45 ML NS (07:38)
[2016-06-24] MEDS ORDERED: LEVEMIR SQ (07:39)
--- NOTE | 2016-06-24 08:10 | NUR ---
PT UP AND IN CHAIR EATING BREAKFAST, REQUESTS BREATHING TREATMENT PRIOR TO EATING, EDUCATED THAT HIS WBC COUNT WAS NORMAL THIS AM AND HE IS AFEBRILE, NO CONCERNS OF REOCCURING PNEUMONIA AT THIS TIME, PATIENT SLIGHTLY ANXIOUS ABOUT DISCHARGE THIS MORNING TO [facility], STATES "I'D JUST ASSUME FIND SOMEWHERE ELSE TO LIVE LATER ON, BUT I'M DONE LIVING IN THIS HOSPITAL," EDUCATED THAT WE WILL GET HIM DISCHARGED SO HE IS MORE COMFORTABLE MARIANELA TODAY, VSS, STILL AMBULATING WITH SBA, NO ACUTE CHANGES OVERNIGHT, LUNGS DIMINISHED WITH FINE CRACKLES IN BILATERAL BASES, CLEAR AFTER BREATHING TREATMENT, DENIES FURTHER NEEDS OR CONERNS, COMPLEX ASSESSMENT COMPLETED, PT UP EATING, CALL LIGHT WITHIN REACH, CHAIR ALARM ON
[2016-06-24 10:28] VITALS: BP 188/94
--- NOTE | 2016-06-24 10:43 | NUR ---
DC PAPERWORK FAXED TO [facility], PT GETTING DRESSED AND READY TO LEAVE , WILL GIVE REPORT TO ACCEPTING NURSE WHEN AVAILABLE, ALL BELONGINGS BEING PACKED UP AT THIS TIME
--- NOTE | 2016-06-24 11:04 | NUR ---
PT STATES HE BROUGHT A POCKET KNIFE, AND WE HAVE IT LOCKED UP, POCKET KNIFE FOUND AT THIS TIME AND SENT TO [facility] WITH MEDICATIONS IN A SECURED BAG ONLY HANDLED BY STAFF, WAITING FOR [facility] STAFF TO ARRIVE AT THIS TIME TO TAKE PATIENT TO THEIR FACILITY
--- NOTE | 2016-06-24 11:14 | NUR ---
ALL AFTERNOON MEDICATIONS GIVEN AT THIS TIME, NEXT MEDICATION ADMINISTRATION NOT DUE UNTIL THIS EVENING, PATIENT EATING AND EARLY LUNCH, WILL DC SHORTLY TO NEW FACILITY, PT IS CALM AND COOPERATIVE, DENIES ANY ACUTE CHANGES, STABLE CONDITION, SITTING ON SIDE OF BED AT THIS TIME TAKING HIS BREATHING TX
--- NOTE | 2016-06-24 11:35 | NUR ---
CALL TO [facility] AT THIS TIME TO CHECK ON STATUS OF STAFF COMING TO CANCELING AND CUTTING CONTROL CLERK PATIENT FOR TRANSFER OVER TO THEIR FACILITY, YUMIKO LAURA STATES "NORIS" IS GOING TO COME PICK HIM UP AND TAKE HIM TO HIS APPOINTMENT AT [facility] THAT IS SCHEDULED FOR 1215, STATES THEY SHOULD "BE HERE QUICKLY"
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
--- NOTE | 2016-06-24 12:19 | NUR ---
REPORT GIVEN TO KEYA SAMUELS AT THIS TIME AT [facility]
== END 2016-06-24 12:10 | DRG 442 ==
LOC: MED/SURG 09:57
PROVIDERS: ADMIT Physician Assistant
DX: K76.7 Hepatorenal syndrome (principal); N17.9 Acute kidney failure, unspecified; R53.81 Other malaise; R60.1 Generalized edema; K74.60 Unspecified cirrhosis of liver; E11.65 Type 2 diabetes mellitus with hyperglycemia; E11.29 Type 2 diabetes mellitus with other diabetic kidney complication; D64.9 Anemia, unspecified; I10 Essential (primary) hypertension; N28.9 Disorder of kidney and ureter, unspecified; S62.101D Fracture of unspecified carpal bone, right wrist, subsequent encounter for fracture with routine healing; W19.XXXD Unspecified fall, subsequent encounter; Z91.14 Patient's other noncompliance with medication regimen; Z91.19 Patient's noncompliance with other medical treatment and regimen; Z79.4 Long term (current) use of insulin; Z91.81 History of falling
CPT/HCPCS: A6214; J1815

== ENCOUNTER 2016-06-26 14:58 | Emergency (ER) | payer MEDICARE ==
[~2016-06-26] VITALS: Wt 53.4 kg
[2016-06-26 14:58] VITALS: BP 51/16
[~2016-06-26 14:58] MED LIST changes: +AMLODIPINE BESYL5 MG PO; +CARVEDILOL6.25 MG PO; +DEEP SEA 45 ML45 ML NS; +FLUTICASON0.05 MG/AC NS; +IPRATROPIUM BROM3 M1 IH; +KROGER NIC21 MG/24 H TD; +LASIX 80MG TABL80 MG PO; +LASIX40 M1 PO; +LEVEMIR SQ; +OXYCODONE PO; +PANTOPRAZOLE SO40 MG PO; +RT ALBUTEROL CC18 GM IH; +[UNRECOGNIZED DRUG - OTHER] IH
== END 2016-06-26 20:11 | disposition expired ==
LOC: ED 14:58
DX: I46.9 Cardiac arrest, cause unspecified (principal); I49.9 Cardiac arrhythmia, unspecified; K70.30 Alcoholic cirrhosis of liver without ascites; E11.22 Type 2 diabetes mellitus with diabetic chronic kidney disease; N17.9 Acute kidney failure, unspecified; J44.9 Chronic obstructive pulmonary disease, unspecified; F17.210 Nicotine dependence, cigarettes, uncomplicated
CPT/HCPCS: A7521; J1265; J7030; J7060